=== PATIENT | female | born 1970 | race Two or more races ===

== ENCOUNTER 2019-08-27 20:35 | Emergency (ER) | payer SELFPAY ==
[~2019-08-27] VITALS: Ht 157.5 cm; Wt 75.7 kg
[2019-08-27 20:50] VITALS: BP 134/86
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
[2019-08-27] MEDS ORDERED: Ketorolac 30mg Inj IM ONE (21:45)
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
[2019-08-27 21:56] LABS: APPEARANCE,URINE CLEAR; BILIRUBIN, URINE NEGATIVE (NEGATIVE); COLOR,URINE PALE YELLOW; GLUCOSE, URINE (UA) NEGATIVE (NEGATIVE); KETONES,URINE NEGATIVE (NEGATIVE); LEUKOCYTE ESTERASE ,URINE NEGATIVE (NEGATIVE); NITRITE,URINE NEGATIVE (NEGATIVE); PH,URINE 7 (4.5-8.0); PROTEIN,URINE NEGATIVE (NEGATIVE); UROBILINOGEN,URINE NORMAL MG/DL (0.0-1.0)
--- NOTE | 2019-08-27 22:00 | NUR ---
ED Nurse Note: Pt is resting in bed, speaking to family on cell phone. NAD.
[2019-08-27] MEDS ORDERED: IBUPROFEN600 M1 ORAL (23:30)
[2019-08-27] MEDS ORDERED: TRAMADOL HCL50 MG ORAL (23:30)
[2019-08-27] MEDS ORDERED: ROBAXIN-500MG ORAL (23:30)
[2019-08-27 23:45] VITALS: BP 129/85
[2019-08-27] MEDS ORDERED: HYDROcodone/Acetamin 5/325 tab ORAL ONE (23:45)
--- NOTE | 2019-08-27 23:45 | NUR ---
ER DISCHARGE NOTE: Patient is cleared to be discharged per ERMD, pt is aox4, on room air, with stable vital signs. pt was given dc and prescription instructions, pt was able to verbalize understanding, pt id band removed. pt is able to ambulate with steady gait. pt took all belongings.
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
== END 2019-08-28 01:23 | disposition home or self-care (01) ==
LOC: EMR 20:59
DX: S16.1XXA Strain of muscle, fascia and tendon at neck level, initial encounter (principal); S39.012A Strain of muscle, fascia and tendon of lower back, initial encounter; V43.52XA Car driver injured in collision with other type car in traffic accident, initial encounter; Y92.410 Unspecified street and highway as the place of occurrence of the external cause; M47.812 Spondylosis without myelopathy or radiculopathy, cervical region; M85.88 Other specified disorders of bone density and structure, other site; R07.9 Chest pain, unspecified
CPT/HCPCS: 71045; 72020; 72040; 81001; 81025; 96372; 99284; J1885